=== PATIENT | female | born 1975 | race Caucasian/White ===

== ENCOUNTER → 2018-02-21 | Day surgery (SDC) | payer OTHER ==
[~2018-02-21] MED LIST: Acetaminophen/HYDROcodone 325-5 MG Tab PO ONE; Bupivacaine 0.25% 10 ML SDV INJECT ONE; Bupivacaine 0.25% 10 ML SDV ONE; Glycopyrrolate 0.2 MG/ML SDV IVPUSH ONE; Lidocaine 2% 20 ML MDV INJECT ONE; Lidocaine 2% 20 ML MDV ONE; Neostigmine Methylsulfate 10 MG/10 ML MDV IV ONE; Ondansetron 4 MG/2 ML SDV IV ONE; Propofol 200 MG/20 ML SDV IV ONE; Rocuronium 50 MG/5 ML Vial IV ONE; Succinylcholine 200 MG/10 ML MDV IV ONE; ceFAZolin 1 GM Vial IVPUSH ONE; fentaNYL 100 MCG/2 ML SDV IV ONE; fentaNYL 100 MCG/2 ML SDV IVPUSH PRN
[2018-02-21] MEDS: Lactated Ringers 1,000 ML IV SCH ×2 (08:30→12:28)
--- NOTE | 2018-02-22 07:02 | OR ---
DATE OF OPERATION: 02/21/2018 PREOPERATIVE DIAGNOSIS: CHRONIC CHOLECYSTITIS WITH CHOLELITHIASIS. POSTOPERATIVE DIAGNOSIS: CHRONIC CHOLECYSTITIS WITH CHOLELITHIASIS. SURGEON: Wang Powers MD PROCEDURE: LAPAROSCOPIC CHOLECYSTECTOMY. ANESTHESIA: General. DESCRIPTION OF PROCEDURE: After the patient was anesthetized satisfactorily, the patient's abdomen was prepped with iodophor. The patient was given sterile drapes. A small skin incision was made in the midline. It was carried down through skin, subcutaneous tissue, down through deep fascia. Deep fascia and peritoneum were opened. An 11-mm blunt trocar was introduced. CO2 gas was insufflated under direct camera vision, another 11-mm trocar was introduced in the subxiphoid space, and 5 mm in the right upper quadrant. Gallbladder was held in position. It was chronically inflamed and had gallstones in the neck of the gallbladder and dissection was done, cystic duct and cystic artery were both dissected out. Junction of the cystic duct with common bile duct and gallbladder was also exposed. Cystic duct and cystic artery were both clipped and divided. Gallbladder was taken off its bed with the help of hook cautery and hemostasis was satisfactory. The gallbladder was then removed with help of an Endo Pouch. CO2 gas was desufflated out. Various trocars were removed. The fascia was closed with 0 Ethibond running sutures. Skin was closed with 4-0 Vicryl subcuticular sutures. The patient was given sterile dressing. She tolerated the procedure well and left the operating room in satisfactory condition. MARK/ALLYSON /[id number]
== END ==
LOC: CC.SDS 08:00
PROVIDERS: ATTEND Surgery
DX: K80.10 Calculus of gallbladder with chronic cholecystitis without obstruction (principal); F41.8 Other specified anxiety disorders; E66.9 Obesity, unspecified; E03.9 Hypothyroidism, unspecified; G47.33 Obstructive sleep apnea (adult) (pediatric); Z88.1 Allergy status to other antibiotic agents; Z88.8 Allergy status to other drugs, medicaments and biological substances; Z91.040 Latex allergy status; Z79.899 Other long term (current) drug therapy; Z72.0 Tobacco use; Z68.41 Body mass index [BMI] 40.0-44.9, adult
CPT/HCPCS: 36415; 84703; J0330; J0690; J2405; J2704; J2710; J3010; J7120